=== PATIENT | female | born 1985 | race African-American/Black ===

== ENCOUNTER 2018-10-17 00:35 | Inpatient (IN) | payer BC ==
[2018-10-17] MEDS ORDERED: Ondansetron PF 4 MG/2 ML Vial ONE ×2 (00:54→15:35)
[2018-10-17] MEDS ORDERED: Morphine 4 MG/ML VIAL ONE ×2 (00:54→02:22)
[2018-10-17 01:11] LABS: Hemoglobin 15.3 g/dL (12.0-16.0); Mean Corpuscular HGB CONC 33.3 g/dL (32.0-36.0); Mean Corpuscular Hemoglobin 28.7 pg (27.0-31.0); Mean Corpuscular Volume 86.2 fL (78.0-98.0); Mean Platelet Volume 8.9 fL (7.4-10.4); Platelet Count 178 thou/uL (130-400); RBC Distribution Width 12.3 % (11.5-14.5); Red Blood Cell (RBC) Count 5.31 mill/uL (4.20-5.40); White Blood Cell (WBC) Count 7.7 thou/uL (4.8-10.8)
[2018-10-17 01:25] LABS: ALT (SGPT) 68 U/L (8-55); AST (SGOT) 52 U/L (5-34); Albumin 4.1 g/dL (3.5-5.0); Alkaline Phosphatase 94 U/L (40-150); Anion Gap 19 mmol/L (10-20); BUN (Urea Nitrogen) 7 mg/dL (7.0-18.7); Bilirubin, Total 4.1 mg/dL (0.2-1.2); Calc. Creatinine Clearance 0 mL/min (70-130); Calcium 10.1 mg/dL (7.8-10.44); Carbon Dioxide 20 mmol/L (22-29); Chloride 99 mmol/L (98-107); Estimated GFR-MDRD 75; Globulin 4.5 g/dL (2.4-3.5); Glucose 132 mg/dL (70-105); Potassium 3.5 mmol/L (3.5-5.1); Protein, Total 8.6 g/dL (6.0-8.3); Sodium 134 mmol/L (136-145)
[2018-10-17 01:26] LABS: BHCG - Serum Negative (NEGATIVE); Band 3 % (5-11); Lymphocytes 13 % (21-51); MDiff Complete? YES; Monocytes 5 % (0-10); Neutrophil 79 % (42-75); Pregs Control Background? CLEAR/WHITE (CLR/WHITE); Pregs Control Bar Appear? YES (CONTROL BAR)
[2018-10-17 01:44] LABS: Lipase 4708 U/L (8-78)
[2018-10-17] MEDS ORDERED: Piperacillin/Tazobactam 4.5 GM VIAL ONE (02:22)
[2018-10-17] MEDS ORDERED: Sodium Chloride 0.9% 100 ML ONE (02:22)
[2018-10-17 04:49] LABS: Bilirubin Large (Negative); Blood, Urine Negative (Negative); Clarity CLEAR (Clear); Glucose, Urine (Dipstick) Negative (Negative); Leukocyte Moderate (Negative); Nitrite Negative (Negative); Protein, Urine (Dipstick) Trace mg/dL (Neg-Trace); Specific Gravity, Urine 1.018 (1.002-1.036); pH, Urine 6.5 (5.0-9.0)
[2018-10-17 04:52] LABS: Bacteria/HPF Rare-Few HPF (None Seen); Hyaline Casts/LPF 4-6 HYALINE CAST LPF (0-3 Hyaline); Pathc Cast-AUWi Flag 1.01 (0-2.49)
[2018-10-17 05:13] LABS: RBC/HPF 0-3 HPF (0-3)
[2018-10-17] MEDS ORDERED: Ondansetron PF 4 MG/2 ML Vial IVP PRN (05:24)
[2018-10-17] MEDS ORDERED: Ondansetron ODT 4 MG TAB PO PRN (05:24)
[2018-10-17] MEDS ORDERED: Acetaminophen 325 MG TAB PO PRN (05:24)
[2018-10-17] MEDS ORDERED: Morphine 4 MG/ML VIAL SLOW IVP PRN (06:15)
--- NOTE | 2018-10-17 06:20 | HP ---
PRIMARY CARE DOCTOR: The patient had no PCP. TIME OF EVALUATION: 3:15 a.m. CHIEF COMPLAINT: Shortness of breath. HISTORY OF PRESENT ILLNESS: This is a 33-year-old female patient, came to the hospital after having shortness of breath. She started having severe abdominal pain and chest tightness and reported she was unable to take a deep breath, symptoms have been present since Monday. This has been on and off and has relatively getting worse. The pain was dull in nature, 10/10. REVIEW OF SYSTEMS: CONSTITUTIONAL: No fever, chills, or generalized weakness. RESPIRATORY: The patient has shortness of breath. No cough or sputum production. Symptoms are exacerbated with deep inspiration. CARDIOVASCULAR: No chest pain or palpitations. GASTROINTESTINAL: The patient has severe abdominal pain in the right upper quadrant, that is radiating to the back. No nausea, vomiting, diarrhea, or abdominal pain. POWER CHECKER: No dizziness, headache, or feeling lightheaded. GENITOURINARY: No burning on urination. EXTREMITIES: No leg swelling. All other systems were reviewed and negative except for the findings mentioned above. PAST MEDICAL HISTORY: No past medical history. SURGICAL HISTORY: Gastric sleeve surgery. PSYCH HISTORY: No previous psych history. SOCIAL HISTORY: No alcohol. No drugs. No smoking history. KNOWN ALLERGIES: No known drug allergies reported. MEDICATIONS: Unknown control pills. PHYSICAL EXAMINATION: VITAL SIGNS: On presentation, blood pressure 133/64 with heart rate of 92, respiratory rate was 26, temperature 98, pain 10/10, oxygen saturation 100 on room air. GENERAL APPEARANCE: The patient is alert, oriented, in mild distress due to pain. HEENT: Eyes, normal conjunctivae. Moist oral mucosa. Anicteric. No JVD. RESPIRATORY: Bilateral air entry. No rales. No wheezes. Symmetric expansion. CARDIOVASCULAR: Normal rate, regular rhythm. No murmurs. No gallop. No edema. ABDOMEN: Soft. The patient is patient is tender in the right upper quadrant. MUSCULOSKELETAL: Baseline range of motion and strength. No tenderness. SKIN: Warm and intact. No pallor. No rash. Peripheral pulses are present. Capillary refill seems to be intact. NEUROLOGIC: No evidence of any new focal weakness. Baseline speech. Cranial nerves seems to be intact. PSYCHIATRIC: The patient is in good mood. No anxiety. Optimal judgment. LABORATORY DATA: EKG was reviewed. The patient has normal sinus rhythm with a rate of 69, MA 134, QRS 78, and QT corrected 452. X-ray was reviewed by myself. No significant abnormalities were seen, official report is pending. Abdominal ultrasound was done, there are no reported labs. The patient's white count 7.7, hemoglobin 15.3, MCV 86.2, platelet count 178. Coagulation; D-dimer 2.98. Sodium 134, potassium 3.5, chloride 99, carbon dioxide 20, anion gap 19, BUN 7, creatinine 0.88, GFR 75, glucose 132, calcium 10.1, total bilirubin 4.1, AST 52, ALT 68. Troponin was negative. Lipase 4700. ASSESSMENT AND PLAN: The patient will be placed in the hospital for follow medical problems: 1. Acute gallstone pancreatitis, lipase is 4700. The patient is receiving hydration. GI has been consulted. There is choledocholithiasis reportedly seen on ultrasound. I do not have the official report and this is to be followed from Radiology. We will treat with pain medication and aggressive hydration. 2. Severe abdominal pain due to acute gallstone pancreatitis. We will treat with pain management. 3. Hyponatremia, sodium 134, will replace as needed. This is mild. No need for any acute intervention at this point. 4. Hyperglycemia. Glucose 132, we will monitor, this is likely due to acute physical distress. No need for any acute intervention at this point. 5. Mildly positive urinary tract infection and the patient has no urinary symptoms might be due to asymptomatic bacteriuria. Job ID: [id number]
[2018-10-17 06:28] VITALS: BMI 35.4
[2018-10-17] MEDS: Sodium Chloride 0.9% 1,000 ML IV SCH ×3 (07:44→19:37)
--- NOTE | 2018-10-17 07:49 | ULT ---
RIGHT UPPER QUADRANT ULTRASOUND: Date: 10/17/18 INDICATION: Right upper quadrant pain for 5 days, nausea, vomiting, and constipation. FINDINGS: Common bile duct is dilated, measuring 1.34 cm. There is moderate intrahepatic biliary ductal dilatat ion. There are numerous layered stones within the gallbladder with sludge. The gallbladder wall is th ickened. No pericholecystic fluid is identified. There is report of a sonographic Lester's sign. Ther e is some slight prominence of the main pancreatic duct up to 1.7 mm. The right kidney measures 8.9 c m in length. Liver measures 15.4 cm. IMPRESSION: 1. Findings suspicious for acute calculus cholecystitis. Additionally, there is intrahepatic and ext rahepatic biliary ductal dilatation. Distal common bile duct stones are not entirely excluded. 2. Slight prominence of the main pancreatic duct may be related to distal choledocholithiasis. 3. Surgical consultation is recommended. POS: [facility]
--- NOTE | 2018-10-17 08:18 | RAD ---
SINGLE VIEW OF THE CHEST: Comparison: None. History: Dyspnea. FINDINGS: Single view of the chest shows a normal sized cardiomediastinal silhouette. There is no evidence of c onsolidation, mass, or pleural effusion. The bones are unremarkable. IMPRESSION: No evidence of acute cardiopulmonary disease. POS: [facility]
[2018-10-17 08:59] LABS: ALT (SGPT) 81 U/L (8-55); AST (SGOT) 87 U/L (5-34); Albumin 3.4 g/dL (3.5-5.0); Alkaline Phosphatase 98 U/L (40-150); Anion Gap 19 mmol/L (10-20); BUN (Urea Nitrogen) 7 mg/dL (7.0-18.7); Bilirubin, Total 4.2 mg/dL (0.2-1.2); Calc. Creatinine Clearance 115 mL/min (70-130); Calcium 9.4 mg/dL (7.8-10.44); Carbon Dioxide 21 mmol/L (22-29); Chloride 100 mmol/L (98-107); Estimated GFR-MDRD 86; Globulin 3.7 g/dL (2.4-3.5); Glucose 102 mg/dL (70-105); Magnesium 1.5 mg/dL (1.6-2.6); Phosphorus 3.9 mg/dL (2.3-4.7); Potassium 3.5 mmol/L (3.5-5.1); Protein, Total 7.1 g/dL (6.0-8.3); Sodium 136 mmol/L (136-145)
[2018-10-17] MEDS ORDERED: Enoxaparin Sodium 40 MG/0.4 ML SYRINGE SC SCH (09:00)
[2018-10-17 09:12] LABS: Lipase 1419 U/L (8-78)
[2018-10-17] MEDS ORDERED: Magnesium Sulfate 2 GM in Sodium Chloride 0.9% 100 ML IVPB SCH (09:45)
[2018-10-17] MEDS ORDERED: Magnesium 2 GM/50 ML 2 GM in Premix Bag 1 BAG IVPB SCH (10:00)
--- NOTE | 2018-10-17 12:57 | CON ---
DATE OF CONSULTATION: 10/17/2018 REASON FOR CONSULTATION: Severe abdominal pain. HISTORY OF PRESENT ILLNESS: Ms. Shah is a 33-year-old female, who presented to the hospital with 4-day duration of abdominal pain. The pain first started 5 days ago that localized to the lower sternal area, but soon radiating to the right upper quadrant and right flank. The pain described as sharp and stabbing. The pain did initially improve, but then recurred and has been progressively worsened. She did have some nausea and vomiting. On ER evaluation, she was noted to have hyperlipidemia with ultrasound demonstrating cholelithiasis with dilation, common bile duct and evidence of intrahepatic biliary dilation. Since admission, her lipase has decreased from 4708 down to 1419. Currently, she feels much better with much less abdominal pain. The patient is otherwise healthy without any other previous medical history. PAST MEDICAL HISTORY: Gastric sleeve in 2013. No hypertension, diabetes, or heart disease or lung disease. ALLERGIES: NONE. MEDICATIONS: At home, control pills. SOCIAL HISTORY: The patient is , has 1 child. Has no tobacco history. Occasional alcohol usage. REVIEW OF SYSTEMS: Ten-point review of systems did not show any other pertinent positives or negatives. PHYSICAL EXAMINATION: VITAL SIGNS: Temperature is 98.4, blood pressure 108/70 and pulse of 99. GENERAL: She is alert and conversant, in no distress. HEENT: Shows really anicteric sclerae. Oropharynx clear. NECK: Supple. CV: Shows normal S1 and S2. Regular rate and rhythm. CHEST: Shows a breath sounds. ABDOMEN: Soft and mildly tender. No guarding or rebound. She has active bowel sounds. EXTREMITIES: Show no edema. LABORATORY DATA: Electrolytes within normal range. Creatinine 0.92. Bilirubin is 4.2, AST 87, ALT of 81, alkaline phosphatase 98, lipase 1419 down from 4708. Serum is negative. WBC 7.7, hemoglobin 15.3, and platelet count of 178. ASSESSMENT: 1. Cholelithiasis with probable choledocholithiasis with dilation, common bile duct to 1.3 cm on ultrasound with evidence of intrahepatic dilation. 2. Biliary pancreatitis, resolving. RECOMMENDATIONS: Preoperative ERCP with possible papillotomy and stone extraction. Indication including risk not limited to bleeding, perforation, and pancreatitis were reviewed with the patient. Job ID: [id number] [facility]
[2018-10-17] MEDS ORDERED: Lidocaine 2% 11 ML SYR ONE (14:23)
[2018-10-17] MEDS ORDERED: Fentanyl 100 MCG/2 ML VIAL ONE (14:23)
[2018-10-17] MEDS ORDERED: cefTRIAXone\\ROCEPHIN 1 GM in Sodium Chloride 0.9% 100 ML IVPB SCH (14:45)
[2018-10-17] MEDS ORDERED: Iothalamate Meglumine 60% 50 ML VIAL FS ONE (14:56)
[2018-10-17] MEDS ORDERED: Indomethacin 50 MG SUPP ONE (14:56)
--- NOTE | 2018-10-17 15:23 | CON ---
DATE OF CONSULTATION: CHIEF COMPLAINT: Right upper quadrant abdominal pain. HISTORY OF PRESENT ILLNESS: The patient is a 33-year-old female, who had a sleeve gastrectomy in 2013, with over 100-pound weight loss, who reports a 5-day history of epigastric pain moving to the right upper quadrant radiating to the back associated with nausea and vomiting. No fever. Ultrasound shows acute calculous cholecystitis with intra and extrahepatic biliary dilatation and prominence of the main pancreatic duct. PAST MEDICAL HISTORY: Otherwise healthy. PAST SURGICAL HISTORY: Sleeve in 2013. Also, I guess they did a hiatal hernia repair at that time. MEDICATIONS: 1. Oral contraceptives. 2. Claritin. ALLERGIES: NO KNOWN DRUG ALLERGIES. SOCIAL HISTORY: She is single. She works as an administrative office specialist. No tobacco. Social alcohol. FAMILY HISTORY: Diabetes. PHYSICAL EXAMINATION: VITAL SIGNS: Temperature 98.4, pulse 99, blood pressure 113/73. GENERAL: Well-developed, well-nourished female, in no apparent distress. HEENT: Possibly some slight jaundice. ABDOMEN: Very tender in the right upper quadrant. Positive Lester sign. EXTREMITIES: Unremarkable. LABORATORY DATA: Her white count is 7.7, H and H 15 and 45, platelet count 178. Electrolytes are fine. CO2 is a little low at 21. Total bilirubin is 4.2, AST of 87, ALT of 81. Lipase was 4708, now is 1419. HCG, negative. ASSESSMENT: Early acute cholecystitis, possible choledocholithiasis, and biliary pancreatitis. PLAN: Recommend GI consultation for possible ERCP followed by laparoscopic cholecystectomy. Job ID: [id number]
[2018-10-17] MEDS ORDERED: Rocuronium Bromide 10 MG/ML (10ML VIAL) ONE (15:35)
[2018-10-17] MEDS ORDERED: Dexamethasone 20 MG/5 ML VIAL ONE (15:35)
[2018-10-17] MEDS ORDERED: Lidocaine 1% PF 5 ML VIAL ONE (15:35)
[2018-10-17] MEDS ORDERED: PROPOFOL 200 MG/20 ML VIAL ONE (15:35)
[2018-10-17] MEDS ORDERED: Glycopyrrolate 0.2 MG/ML 5 ML SYRINGE ONE (15:35)
--- NOTE | 2018-10-17 16:48 | RAD ---
ERCP INTRAOPERATIVE FLUOROSCOPY 10/17/18 HISTORY: Cholecystitis. FINDINGS/IMPRESSION: Intraoperative fluoroscopy was provided for ERCP procedure. Fluoroscopic images show contrast opacifi cation of a common bile duct that is estimated at 10 mm diameter centrally. No filling defects are re liably demonstrated on these images. There is partial opacification of the intrahepatic biliary syste m. POS: [facility]
--- NOTE | 2018-10-17 20:27 | OP ---
DATE OF PROCEDURE: 10/17/2018 PROCEDURE PERFORMED: Endoscopic retrograde cholangiopancreatography with sphincterotomy and stone extraction. PREMEDICATION: Given by Anesthesiology Department. PREPROCEDURE DIAGNOSES: 1. Cholelithiasis with biliary pancreatitis. 2. Dilated bile duct with elevated liver test, suspecting choledocholithiasis. POSTPROCEDURE DIAGNOSES: 1. Choledocholithiasis. 2. Dilated common duct, approximately 15 mm tapered towards the end. DESCRIPTION OF PROCEDURE: Written consents obtained prior to procedure. After adequate sedation, the side-viewing endoscope was advanced on the stomach to the pylorus into duodenum. The ampulla was visualized and appeared normal. Selective cannulation of the common bile duct was performed easily and successfully. Injection contrast showed several oval filling defects. The bile duct is diffusely dilated to approximately 15 mm with tapering toward the ampulla. The intrahepatic duct fills and appeared normal. A papillotomy was performed at 12 o'clock position with good hemostasis. A 12-mm balloon was then used to extract multiple stone between 8 to 10 cholesterol-type stones. Repeat cholangiogram performed was normal with free emptying of contrast from the bile duct. The instruments were then fully removed. The patient tolerated the procedure well without any immediate complication. ASSESSMENT: 1. Dilated common bile duct. 2. Multiple common bile duct stones, status post sphincterotomy and extraction. RECOMMENDATION: Proceed with cholecystectomy tomorrow. Job ID: [id number]
[2018-10-18] MEDS: Sodium Chloride 0.9% 1,000 ML IV SCH ×3 (02:22→15:35)
[2018-10-18 06:30] LABS: #Lymphocytes 1.1 thou/uL (1.20-3.40); #Monocytes 0.8 thou/uL (0.11-0.59); #Neutrophils 11.7 thou/uL (1.40-6.50); %Basophils 0.3 % (0.0-1.0); %Eosinophils 0.1 % (0.0-10.0); %Lymphocytes 8.2 % (21.0-51.0); %Monocytes 5.8 % (0.0-10.0); %Neutrophils 85.7 % (42.0-75.0); Hemoglobin 12.8 g/dL (12.0-16.0); Mean Corpuscular HGB CONC 32.4 g/dL (32.0-36.0); Mean Corpuscular Hemoglobin 28.3 pg (27.0-31.0); Mean Corpuscular Volume 87.2 fL (78.0-98.0); Platelet Count 249 thou/uL (130-400); RBC Distribution Width 12.5 % (11.5-14.5); Red Blood Cell (RBC) Count 4.54 mill/uL (4.20-5.40); White Blood Cell (WBC) Count 13.6 thou/uL (4.8-10.8)
[2018-10-18 06:57] LABS: ALT (SGPT) 82 U/L (8-55); AST (SGOT) 69 U/L (5-34); Albumin 3.2 g/dL (3.5-5.0); Alkaline Phosphatase 103 U/L (40-150); Anion Gap 10 mmol/L (10-20); BUN (Urea Nitrogen) 6 mg/dL (7.0-18.7); Bilirubin, Total 1.4 mg/dL (0.2-1.2); Calc. Creatinine Clearance 123 mL/min (70-130); Carbon Dioxide 23 mmol/L (22-29); Chloride 107 mmol/L (98-107); Estimated GFR-MDRD Greater than 90; Globulin 3.7 g/dL (2.4-3.5); Glucose 114 mg/dL (70-105); Lipase 863 U/L (8-78); Magnesium 1.9 mg/dL (1.6-2.6); Phosphorus 2.8 mg/dL (2.3-4.7); Potassium 3.8 mmol/L (3.5-5.1); Protein, Total 6.9 g/dL (6.0-8.3); Sodium 136 mmol/L (136-145)
[2018-10-18] MEDS ORDERED: cefTRIAXone\\ROCEPHIN 1 GM in Sodium Chloride 0.9% 100 ML IVPB SCH (09:00)
[2018-10-18] MEDS ORDERED: cefOXitin Sodium/Dextrose,Iso 2 GM in Premix Bag 1 BAG IVPB SCH (09:45)
--- NOTE | 2018-10-18 10:07 | PRG ---
DATE OF SERVICE: SUBJECTIVE: The patient is feeling a lot better after ERCP yesterday and stone extraction, pain is better. Dr. Flor removed quite a few stones. OBJECTIVE: VITAL SIGNS: Temperature is 98.4, pulse 71, and blood pressure 130/84. GENERAL: She looks good. No jaundice today. ABDOMEN: Soft. Decreased tenderness. LABORATORY DATA: Her white count is 13.6, hemoglobin and hematocrit of 12 and 39, and platelet count 249. Her T bilirubin has gone from 4.2 to 1.4. Transaminases are coming down. Lipase is down to 863. ASSESSMENT: Choledocholithiasis and cholecystitis. PLAN: Laparoscopic cholecystectomy. CONSENT: I have discussed the planned procedure as well as risk of bleeding, infection, injury to bile duct, injury to bowel, need to open. She understands and gives informed consent. Job ID: [id number]
[2018-10-18] MEDS ORDERED: Bupivacaine HCl 0.5%/Epinephrine 1:200,000/PF 30 ml Vial ONE (11:40)
[2018-10-18] MEDS ORDERED: Fentanyl 100 MCG/2 ML VIAL ONE ×2 (12:03→13:46)
[2018-10-18] MEDS ORDERED: Midazolam HCl 2 mg/2 ml Vial ONE (12:03)
[2018-10-18] MEDS ORDERED: hydrALAZINE 20 MG/ML VIAL SLOW IVP PRN (13:09)
[2018-10-18] MEDS ORDERED: Ondansetron PF 4 MG/2 ML Vial IVP PRN (13:09)
[2018-10-18] MEDS ORDERED: HYDROcodone/Acetaminophen 10/325 mg Tablet PO PRN ×2 (13:09)
[2018-10-18] MEDS ORDERED: Morphine 4 MG/ML VIAL SLOW IVP PRN (13:09)
[2018-10-18] MEDS ORDERED: Calcium Carbonate 500 MG ChewTAB PO PRN (13:09)
[2018-10-18] MEDS ORDERED: Mag-Al 1200 mg/1200 mg/30 ML UDCUP PO PRN (13:09)
[2018-10-18] MEDS ORDERED: Dextrose 5% in Water 1,000 ML IV PRN (13:09)
[2018-10-18] MEDS ORDERED: Promethazine HCl 25 MG/ML VIAL IM PRN ×2 (13:09→13:24)
[2018-10-18] MEDS ORDERED: Dextrose 50% Abboject 50 ML SYRINGE SLOW IVP PRN (13:09)
[2018-10-18] MEDS ORDERED: Promethazine HCl 25 MG/ML VIAL SLOW IVP PRN (13:24)
[2018-10-18] MEDS ORDERED: Ondansetron HCl/PF 4 MG/2 ML Vial IVP PRN (13:24)
[2018-10-18] MEDS ORDERED: Promethazine HCl 25 MG/ML VIAL ONE (13:34)
[2018-10-18] MEDS ORDERED: CEFAZOLIN 2 GM in Premix Bag 1 BAG IVPB SCH (14:00)
[2018-10-18] MEDS ORDERED: cefOXitin 2 GM in Sodium Chloride 0.9% 100 ML IVPB SCH (14:00)
--- NOTE | 2018-10-18 15:55 | OP ---
DATE OF PROCEDURE: 10/18/2018 PREOPERATIVE DIAGNOSIS: Cholecystitis. PROCEDURE PERFORMED: Laparoscopic cholecystectomy. INDICATIONS: The patient is a 33-year-old female, who presented with severe right upper quadrant pain, elevated liver function tests, and an ultrasound showing gallstones and dilated common bile duct, as well as elevated lipase. She underwent ERCP yesterday with a stone extraction. Bilirubin came down from 4.1 to 1.7, feeling much better. FINDINGS: She had thickening of the gallbladder wall. DESCRIPTION OF PROCEDURE: After informed consent was obtained, the patient was taken to the operating room, given general endotracheal anesthesia, placed in the supine position. Abdomen was prepped and draped in usual fashion. Local anesthesia infiltrated subcutaneously and deep. A subumbilical incision was performed. Subcu divided sharply. The fascia grasped and two stay sutures of 0 Vicryl placed in each side of midline. Midline incised. Digital palpation revealed no local adhesions. A blunt 10/12 trocar inserted. Pneumoperitoneum was created to a pressure of 15 mmHg. A 0-degree laparoscope was inserted under direct vision. Three 5 mm ports were placed subcostally. The gallbladder was grasped and advanced superiorly. The peritoneum lysed distally to expose the cystic duct and artery. These were triply ligated with hemoclips and divided. The gallbladder removed from its fossa utilizing electrocautery, removed from the abdomen through the umbilical port. Hemostasis assured. The wound was irrigated and fluid removed. Trocars and retractors removed. The fascia closed with interrupted 0 Vicryl suture. The skin closed with interrupted 4-0 Rapide. Dermabond applied. The patient tolerated the procedure well transferred to Recovery in good condition. Sponge and needle count verified correct x2. Job ID: [id number]
--- NOTE | 2018-10-18 16:16 | PRG ---
DATE OF SERVICE: 10/18/2018 SUBJECTIVE: The patient just had gallbladder surgery. She feels sore, but denies any nausea or vomiting. OBJECTIVE: VITAL SIGNS: Temperature is 98.3, blood pressure 137/85, and pulse of 63. GENERAL: She is alert. No distress. HEENT: Anicteric sclerae. NECK: Supple. CV: Normal S1 and S2. Regular rate and rhythm. CHEST: Breath sounds. ABDOMEN: Mildly diffusely tender, but no guarding or rebound. She has active bowel sounds. EXTREMITIES: No edema. LABORATORY DATA: WBCs 13.6, hemoglobin 12.8, and platelet count of 249. Electrolytes within normal range. Creatinine 0.86, bilirubin 1.4, alkaline phosphatase 103, and ALT 82. ASSESSMENT: 1. Choledocholithiasis, status post endoscopic retrograde cholangiopancreatography with extraction of stones. 2. Cholelithiasis, status post cholecystectomy. 3. Overall doing well from GI standpoint. RECOMMENDATION: No further recommendations recommended. The patient is doing well. Anticipate discharge tomorrow. Please call if needed. Job ID: [id number]
[2018-10-18] MEDS ORDERED: Ketorolac Tromethamine 30 MG/ML VIAL IVP SCH (18:00)
[2018-10-18 18:01] VITALS: BP 112/75; TEMP 98.7
[2018-10-18] MEDS ORDERED: Famotidine 20 MG TAB PO SCH (21:00)
[2018-10-18] MEDS ORDERED: Famotidine/PF 20 mg/2ml Vial SLOW IVP SCH (21:00)
--- NOTE | 2018-10-18 22:06 | DIS ---
DATE OF ADMISSION: 10/17/2018 DATE OF DISCHARGE: 10/18/2018 DISCHARGE DIAGNOSES: Choledocholithiasis, acute on chronic cholecystitis. PROCEDURES DURING ADMISSION: ERCP with sphincterotomy and stone extraction, laparoscopic cholecystectomy. HOSPITAL COURSE: The patient was admitted, given IV fluids, IV antibiotics. GI was consulted. She underwent an ERCP with sphincterotomy. She was found to have choledocholithiasis. The following day, she underwent a laparoscopic cholecystectomy. She is doing well. Pain is well controlled. She wants to go home. She is discharged home on hydrocodone and Zofran. She will follow up with me in 2 weeks. Job ID: [id number]
[2018-10-19] MEDS ORDERED: Enoxaparin Sodium 40 MG/0.4 ML SYRINGE SC SCH (09:00)
--- NOTE | 2018-10-20 08:13 | DIS ---
DATE OF ADMISSION: 10/17/2018 DATE OF DISCHARGE: 10/18/2018 DISCHARGE DISPOSITION: Home. FOLLOWUP: Follow up with primary care physician, Dr. Deborah Knutson at [facility] in 1 week. INPATIENT POWER CRANE OPERATOR: 1. General Surgery, Dr. Collins. 2. Gastroenterology, Dr. Flor. The patient was seen and examined on the day of discharge. Denies any new complaints. No chest pain, shortness of breath, or palpitations reported. BRIEF HOSPITAL COURSE: The patient is a 33-year-old female with no past medical history, presented to the hospital with abdominal discomfort. Her workup was consistent with gallstone pancreatitis. Her lipase on admission was 4708 with total bilirubin 4.1. Right upper quadrant ultrasound showed dilated common bile duct at 1.3 cm with moderate intrahepatic biliary ductal dilatation. She underwent ERCP on October 17, 2018, that showed multiple common bile duct stone. She underwent sphincterotomy with stone extraction. Next day, she underwent cholecystectomy by Dr. Collins. She has been cleared by Dr. Collins for discharge. FINAL DIAGNOSES: 1. Acute abdominal discomfort secondary to gallstone pancreatitis, status post ERCP and cholecystectomy. 2. History of morbid obesity, status post gastric sleeve surgery. 3. Obesity with a BMI of 35.4. 4. Mild hyponatremia, resolved. 5. Abnormal LFTs secondary to #1, improving. 6. Hypomagnesemia, replaced. SIGNIFICANT LABS: Lipase on admission 4708, at discharge 863. Bilirubin on the day of discharge was 1.4. PLAN: Plan was discussed with the patient in detail. She stated understanding. Job ID: [id number]
== END 2018-10-18 18:27 | disposition home or self-care (01) | DRG 418 ==
LOC: ERS 00:35 → ERHOLD 02:30 → T4-B 06:05
PROVIDERS: ADMIT Hospitalist; ATTEND Hospitalist
PROC: 0FC98ZZ Extirpation of Matter from Common Bile Duct, Via Natural or Artificial Opening Endoscopic (ICD-10-PCS; 2018-10-17)
PROC: 0FT44ZZ Resection of Gallbladder, Percutaneous Endoscopic Approach (ICD-10-PCS; principal; 2018-10-18)
DX: K85.10 Biliary acute pancreatitis without necrosis or infection (principal); K80.62 Calculus of gallbladder and bile duct with acute cholecystitis without obstruction; E87.1 Hypo-osmolality and hyponatremia; N39.0 Urinary tract infection, site not specified; R73.9 Hyperglycemia, unspecified; Z98.84 Bariatric surgery status
CPT/HCPCS: 36415; 71045; 74330; 76705; 80053; 81003; 81015; 83690; 83735; 83880; 84100; 84484; 84703; 85025; 85379; 88304; 93005; 96365; 96366; 96375; 96376; J0670; J0694; J0696; J1100; J2001; J2250; J2270; J2405; J2543; J2550; J2704; J3010; J3475; J7050; Q9961